=== PATIENT | male | born 1950 | race African-American/Black ===

== ENCOUNTER 2017-03-30 21:15 | Emergency (ER) | payer MEDICAID ==
[~2017-03-30] VITALS: Ht 172.7 cm; Wt 84.2 kg
[~2017-03-30 21:15] MED LIST: ASPI-496 PO; LISI-170 PO; LISI5TAB7 PO; METF500T4 PO; METH40TA3 PO; SIMV20TA3 PO
[2017-03-30 21:25] VITALS: BP 149/81
== END 2017-03-30 22:31 | disposition left against medical advice (07) ==
LOC: ED 22:25
DX: R07.9 Chest pain, unspecified (principal); Z53.21 Procedure and treatment not carried out due to patient leaving prior to being seen by health care provider
CPT/HCPCS: 93005

== ENCOUNTER 2017-05-04 10:53 | Emergency (ER) | payer MEDICAID ==
[~2017-05-04] VITALS: Ht 172.7 cm; Wt 82.9 kg
[2017-05-04 10:55] VITALS: BP 154/82
== END 2017-05-04 11:26 | disposition left against medical advice (07) ==
LOC: ED 11:00
DX: Z53.21 Procedure and treatment not carried out due to patient leaving prior to being seen by health care provider (principal)

== ENCOUNTER 2018-02-24 01:43 | Emergency (ER) | payer MEDICAID ==
[~2018-02-24] VITALS: Ht 172.7 cm; Wt 87.0 kg
[~2018-02-24 01:43] MED LIST changes: -METF500T4 PO; +METF500T5 PO
[2018-02-24 01:48] VITALS: BP 149/91
== END 2018-02-24 02:14 | disposition home or self-care (01) ==
LOC: ED 02:08
DX: L03.114 Cellulitis of left upper limb (principal); E78.5 Hyperlipidemia, unspecified; E11.9 Type 2 diabetes mellitus without complications; I10 Essential (primary) hypertension
CPT/HCPCS: 99283

== ENCOUNTER 2018-02-27 01:12 | Emergency (ER) | payer MEDICAID ==
[~2018-02-27] VITALS: Ht 172.7 cm; Wt 86.8 kg
[~2018-02-27 01:12] MED LIST changes: +METF500T17 PO; -METF500T5 PO
[2018-02-27 01:13] VITALS: BP 139/76
== END 2018-02-27 02:27 | disposition home or self-care (01) ==
LOC: ED 01:43
DX: T50.905A Adverse effect of unspecified drugs, medicaments and biological substances, initial encounter (principal); Z00.00 Encounter for general adult medical examination without abnormal findings; I10 Essential (primary) hypertension; E11.9 Type 2 diabetes mellitus without complications; E78.5 Hyperlipidemia, unspecified; Y92.9 Unspecified place or not applicable
CPT/HCPCS: 99281

== ENCOUNTER 2018-08-05 17:03 | Emergency (ER) | payer MEDICAID ==
[~2018-08-05] VITALS: Ht 172.7 cm; Wt 91.0 kg
[2018-08-05] MEDS ORDERED: ASPIRIN 81 MG TABLET CHEW PO ONE (17:30)
--- NOTE | 2018-08-05 17:41 | NUR ---
TO ROOM FROM LOBBY. NAD.
--- NOTE | 2018-08-05 17:54 | NUR ---
ATTEMPTED TO PLACED PT ON MONITOR AND ASK QUESTIONS. UPON ASKING PT QUESTIONS, PT BECAME VERBALLY AGRESSIVE TOWARDS MYSELF. STATES HE WANTS SOMEONE ELSE AFTER ASKING HIM QUESTIONS REGARDING HIS CHEST PAIN. ORTHOPEDIC TECHNICIAN AWARE. UNABLE TO PLACE PT ON SURFACE WATER TECHNICIAN AT THIS TIME.
[2018-08-05 17:56] LABS: BASOPHILS # (AUTO) 0.05 x10^3/uL (0-0.1); BASOPHILS % (AUTO) 1 % (0-1); EOSINOPHILS # (AUTO) 0.36 x10^3/uL (0-0.4); EOSINOPHILS % (AUTO) 5 % (1-7); LYMPHOCYTES # (AUTO) 1.94 x10^3/uL (1-3.4); LYMPHOCYTES % (AUTO) 25 % (22-44); MD NO; MEAN CORPUSCULAR HEMOGLOBIN 30.4 pg (27.5-34.5); MEAN CORPUSCULAR HGB CONC 33.8 g/dL (33.2-36.2); MEAN CORPUSCULAR VOLUME 89.9 fL (81-97); MEAN PLATELET VOLUME 8.7 fL (7.4-10.4); MONOCYTES # (AUTO) 0.54 x10^3/uL (0.2-0.8); MONOCYTES % (AUTO) 7 % (2-9); NEUTROPHILS % (AUTO) 63 % (42-75); PLATELET COUNT 201 x10^3/uL (130-400); RED BLOOD COUNT 4.91 x10^6/uL (4.38-5.82); RED CELL DISTRIBUTION WIDTH 15.4 % (9.4-14.8)
[2018-08-05 18:06] LABS: ALBUMIN 3.7 g/dL (3.4-5.0); ANION GAP 3 mmol/L (5-15); CALCIUM 8.6 mg/dL (8.5-10.1); CHLORIDE 108 mmol/L (98-107)
[2018-08-05 18:12] LABS: ALANINE AMINOTRANSFERASE 40 U/L (12-78); ALKALINE PHOSPHATASE 95 U/L (45-117); BILIRUBIN,TOTAL 0.4 mg/dL (0.2-1.0); CREATININE 1.45 mg/dL (0.7-1.3); TOTAL PROTEIN 7.6 g/dL (6.4-8.2); TROPONIN I < 0.015 ng/mL (0.000-0.045)
[2018-08-05] MEDS ORDERED: ASPIRIN 81 MG TABLET CHEW ONE (18:42)
[2018-08-05] MEDS ORDERED: METF500T27 PO (18:46)
--- NOTE | 2018-08-05 19:51 | NUR ---
PT DECLINING TO BE ADMITTED. SIGNED OUT AMA AND PROVIDED DISCHARGE PAPERS WITH ENCOURAGMENT TO FOLLOW UP FOR FURTHER CARDIAC WORKUP OR TO RETURN TO ER FOR SAME AT ANY TIME
[2018-08-05 19:53] VITALS: BP 125/65
== END 2018-08-05 20:05 | disposition left against medical advice (07) ==
LOC: ED 18:30
DX: R07.89 Other chest pain (principal); R06.02 Shortness of breath; R10.9 Unspecified abdominal pain; E11.9 Type 2 diabetes mellitus without complications; I10 Essential (primary) hypertension; F17.200 Nicotine dependence, unspecified, uncomplicated
CPT/HCPCS: 36415; 71046; 80053; 83880; 84484; 85025; 93005; 99284

== ENCOUNTER 2018-08-13 16:19 | Emergency (ER) | payer MEDICAID ==
[~2018-08-13] VITALS: Ht 172.7 cm; Wt 92.3 kg
[~2018-08-13 16:19] MED LIST changes: +METF500T27 PO
--- NOTE | 2018-08-13 16:22 | NUR ---
NO ANS WHEN CALLED FOR TRIAGE
--- NOTE | 2018-08-13 16:58 | NUR ---
CALLED FOR ROOM, NO ANSWER.
--- NOTE | 2018-08-13 17:09 | NUR ---
PT AMBULATORY TO ROOM FROM LOBBY.
[2018-08-13 17:17] LABS: ALBUMIN 3.9 g/dL (3.4-5.0); ANION GAP 3 mmol/L (5-15); CHLORIDE 109 mmol/L (98-107)
[2018-08-13 17:21] LABS: TROPONIN I < 0.015 ng/mL (0.000-0.045)
--- NOTE | 2018-08-13 17:25 | NUR ---
PT C/O INTERMITTENT CP AND SOB ON EXERTION FOR 4-5 MONTHS THAT RETURNED TODAY AFTER STARTING TO WALK ABOUT 2 HOURS AGO. PT ON MONITOR. PT DENIES ANY N/V OR DIAPHORESIS. CHART UP FOR . REPORT TO SCOTTIE David
--- NOTE | 2018-08-13 17:28 | NUR ---
PT REPORT FROM MARTIR PENALOZA. PT CARE TO BE ASSUMED.
[2018-08-13 17:29] LABS: BASOPHILS # (AUTO) 0.07 x10^3/uL (0-0.1); BASOPHILS % (AUTO) 1 % (0-1); EOSINOPHILS # (AUTO) 0.24 x10^3/uL (0-0.4); EOSINOPHILS % (AUTO) 3 % (1-7); LYMPHOCYTES # (AUTO) 1.58 x10^3/uL (1-3.4); LYMPHOCYTES % (AUTO) 22 % (22-44); MEAN CORPUSCULAR HEMOGLOBIN 30.4 pg (27.5-34.5); MEAN CORPUSCULAR HGB CONC 33.5 g/dL (33.2-36.2); MEAN CORPUSCULAR VOLUME 90.8 fL (81-97); MEAN PLATELET VOLUME 9.1 fL (7.4-10.4); MONOCYTES # (AUTO) 0.54 x10^3/uL (0.2-0.8); MONOCYTES % (AUTO) 7 % (2-9); NEUTROPHILS % (AUTO) 67 % (42-75); PLATELET COUNT 142 x10^3/uL (130-400); RED BLOOD COUNT 5.03 x10^6/uL (4.38-5.82); RED CELL DISTRIBUTION WIDTH 15.8 % (9.4-14.8)
[2018-08-13 17:30] LABS: MD SCAN
[2018-08-13 18:26] VITALS: BP 179/89
--- NOTE | 2018-08-13 18:33 | NUR ---
PT INSISTANT UPON LEAVING AMA. AMA FORM SIGNED. PT A&OX4, RESP EVEN & UNLABORED, SPEECH CLEAR, SKIN WNL. DENIES PAIN CURRENTLY. DENIES LIGHTHEADEDNESS/DIZZINESS W/ POSITION CHANGE.
== END 2018-08-13 18:36 | disposition left against medical advice (07) ==
LOC: ED 18:30
DX: R07.89 Other chest pain (principal); R42 Dizziness and giddiness; R06.02 Shortness of breath; E11.9 Type 2 diabetes mellitus without complications; F17.200 Nicotine dependence, unspecified, uncomplicated
CPT/HCPCS: 36415; 71045; 80048; 82040; 84484; 85025; 93005; 99284

== ENCOUNTER 2018-08-13 20:46 | Emergency (ER) | payer MEDICAID ==
[~2018-08-13] VITALS: Ht 172.7 cm; Wt 91.6 kg
== END 2018-08-13 22:12 | disposition other institution (70) ==
LOC: ED 22:06
DX: R06.02 Shortness of breath (principal); Z53.21 Procedure and treatment not carried out due to patient leaving prior to being seen by health care provider
CPT/HCPCS: 93005; 99283

== ENCOUNTER 2018-11-03 08:44 | Emergency (ER) | payer MEDICAID ==
[~2018-11-03] VITALS: Ht 170.2 cm; Wt 91.7 kg
[2018-11-03 08:46] VITALS: BP 182/87
[2018-11-03] MEDS ORDERED: METHOCARBAMOL 750 MG TABLET ONE (10:15)
[2018-11-03] MEDS ORDERED: HYDROcodone/APAP 5/325 TABLET ONE (10:15)
[2018-11-03] MEDS ORDERED: METHOCARBAMOL 750 MG TABLET PO ONE (10:30)
[2018-11-03] MEDS ORDERED: HYDROcodone/APAP 5/325 TABLET PO ONE (10:30)
== END 2018-11-03 11:20 | disposition home or self-care (01) ==
LOC: ED 11:11
DX: G89.29 Other chronic pain (principal); M51.36 Other intervertebral disc degeneration, lumbar region; M54.5 Low back pain; M25.552 Pain in left hip; F17.200 Nicotine dependence, unspecified, uncomplicated; I10 Essential (primary) hypertension; E11.9 Type 2 diabetes mellitus without complications
CPT/HCPCS: 72110; 99283

== ENCOUNTER 2018-11-26 02:31 | Emergency (ER) | payer MEDICARE, MEDICAID ==
[~2018-11-26] VITALS: Ht 172.7 cm; Wt 90.6 kg
[2018-11-26 02:34] VITALS: BP 127/79
--- NOTE | 2018-11-26 04:13 | NUR ---
PT LEFT AMA. AMA PAPERWORK SIGNED AND PLACED WITH PT CHART. PT WALKED THROUGH LOBBY DOOR WITH ASSSITANCE OF OTTO.
== END 2018-11-26 03:19 ==
LOC: ED 03:08
DX: R07.89 Other chest pain (principal); R68.2 Dry mouth, unspecified; H04.123 Dry eye syndrome of bilateral lacrimal glands; F17.200 Nicotine dependence, unspecified, uncomplicated; I10 Essential (primary) hypertension; E11.9 Type 2 diabetes mellitus without complications; E78.5 Hyperlipidemia, unspecified
CPT/HCPCS: 99281

== ENCOUNTER 2019-06-07 09:59 | Emergency (ER) | payer MEDICARE, MEDICAID ==
[~2019-06-07] VITALS: Ht 172.7 cm; Wt 91.4 kg
[~2019-06-07 09:59] MED LIST changes: +ARTHIRITIS MED; +BLOOD PRESSURE MED
--- NOTE | 2019-06-07 10:42 | NUR ---
PT TO ED FOR INTERMITTENT SOB X4-[address] RANDALL TO BS FOR ASSESSMENT. PT THEN TOLD DR. RANDALL IT HAS BEEN HAPPENING FOR MONTHS. PT DENIES ANY AGGRAVATING OR RELIEVING FACTORS AND STATES, "SOMETIMES IT HAPPENS WEHN I'M JUST SITTING." PT IS UNABLE TO STATE WHAT CHANGED TODAY THAT MADE HIM COME TO THE ED. PT IS ANGRY, ARGUMENTATIVE AND VERBALLY AGGRESSIVE TOWARD STAFF. PT STATED, "I'M ANSWERING ALL THE QUESTIONS THAT YOU ASK ME! WHAT ELSE DO YOU WANT? ARE YOU GOING TO DO SOMETHING FOR ME OR NOT? JUST DO YOUR JOB!" PT CONNECTED TO ALL MONITORS. VSS. ORDERS RECEIVED. EKG, CXR AND LAB DRAW COMPLETE. AWAITING RESULTS.
[2019-06-07 11:21] LABS: TROPONIN I < 0.015 ng/mL (0.000-0.045)
[2019-06-07 11:27] VITALS: BP 154/76
--- NOTE | 2019-06-07 11:27 | NUR ---
PT RESTING IN ROOM. VSS. NO NEEDS EXPRESSED. CALL LIGHT WITHIN REACH. ALL RESULTS BACK AT THIS TIME. CHART UP FOR RECHECK.
== END 2019-06-07 11:41 | disposition home or self-care (01) ==
LOC: ED 10:56
DX: R06.00 Dyspnea, unspecified (principal); I10 Essential (primary) hypertension; E78.5 Hyperlipidemia, unspecified; E11.9 Type 2 diabetes mellitus without complications; F17.200 Nicotine dependence, unspecified, uncomplicated; F12.10 Cannabis abuse, uncomplicated
CPT/HCPCS: 36415; 71045; 84484; 93005; 99284

== ENCOUNTER 2019-06-08 11:30 | Emergency (ER) | payer MEDICARE, MEDICAID ==
[~2019-06-08] VITALS: Ht 172.7 cm; Wt 90.6 kg
[2019-06-08] MEDS ORDERED: SODIUM CHLORIDE FLUSH 10ML SYR IVF ONE (12:00)
[2019-06-08 12:04] VITALS: BP 91/65
== END 2019-06-08 12:08 | disposition left against medical advice (07) ==
LOC: ED 11:57
DX: R55 Syncope and collapse (principal)
CPT/HCPCS: 82962; 93005; 99283; 99284

== ENCOUNTER 2019-08-23 19:07 | Emergency (ER) | payer MEDICARE, MEDICAID ==
[~2019-08-23] VITALS: Ht 172.7 cm; Wt 97.9 kg
[~2019-08-23 19:07] MED LIST changes: +SIMV20TA19 PO; -SIMV20TA3 PO
[2019-08-23] MEDS ORDERED: ASPIRIN 81 MG TABLET CHEW ONE (19:44)
--- NOTE | 2019-08-23 19:45 | NUR ---
MEDS REQUESTED FROM PHARMACY
[2019-08-23] MEDS ORDERED: ASPIRIN 81 MG TABLET CHEW PO ONE (20:00)
[2019-08-23] MEDS ORDERED: LISINOPRIL 10 MG TABLET PO ONE (20:00)
[2019-08-23] MEDS ORDERED: SODIUM CHLORIDE FLUSH 10ML SYR IVF ONE (20:00)
[2019-08-23 20:14] LABS: BASOPHILS # (AUTO) 0.04 x10^3/uL (0-0.1); BASOPHILS % (AUTO) 1 % (0-1); EOSINOPHILS # (AUTO) 0.18 x10^3/uL (0-0.4); EOSINOPHILS % (AUTO) 2 % (1-7); LYMPHOCYTES # (AUTO) 1.65 x10^3/uL (1-3.4); LYMPHOCYTES % (AUTO) 19 % (22-44); MD NO; MEAN CORPUSCULAR HEMOGLOBIN 29.4 pg (27.5-34.5); MEAN CORPUSCULAR HGB CONC 32.8 g/dL (33.2-36.2); MEAN CORPUSCULAR VOLUME 89.6 fL (81-97); MEAN PLATELET VOLUME 8.5 fL (7.4-10.4); MONOCYTES # (AUTO) 0.68 x10^3/uL (0.2-0.8); MONOCYTES % (AUTO) 8 % (2-9); NEUTROPHILS # (AUTO) 5.97 x10^3/uL (1.8-6.8); NEUTROPHILS % (AUTO) 70 % (42-75); PLATELET COUNT 194 x10^3/uL (130-400); RED BLOOD COUNT 4.98 x10^6/uL (4.38-5.82); RED CELL DISTRIBUTION WIDTH 15.1 % (9.4-14.8)
--- NOTE | 2019-08-23 20:21 | NUR ---
PT MEDICATED PER EMAR. 5 RIGHTS ADDRESSED. MONITORING EQUIPMENT APPLIED. PT REFUSING TO CHANGE INTO A GOWN AND DOES NOT WANT THE MAINTENANCE COORDINATOR ON. ADVISED OF RISKS NOT DOING THIS AND STILL REFUSES. PT ALSO REFUSING TO WEAR A FACE MASK ALTHOUGH C/O FEVER/CHILLS
[2019-08-23 20:23] LABS: ALBUMIN 3.8 g/dL (3.4-5.0); ANION GAP 6 mmol/L (5-15); CALCIUM 8.8 mg/dL (8.5-10.1); CHLORIDE 105 mmol/L (98-107)
[2019-08-23 20:25] VITALS: BP 178/88
[2019-08-23 20:28] LABS: ALANINE AMINOTRANSFERASE 73 U/L (12-78); ALKALINE PHOSPHATASE 121 U/L (45-117); BILIRUBIN,TOTAL 0.6 mg/dL (0.2-1.0); CREATININE 1.05 mg/dL (0.7-1.3); TOTAL PROTEIN 7.6 g/dL (6.4-8.2); TROPONIN I < 0.015 ng/mL (0.000-0.045)
--- NOTE | 2019-08-23 20:59 | NUR ---
Patient/Caregiver given discharge instructions and they have confirmed that they understand the instructions. Patient ambulatory with steady gait.
== END 2019-08-23 21:00 ==
LOC: ED 20:54
DX: J44.1 Chronic obstructive pulmonary disease with (acute) exacerbation (principal); R00.1 Bradycardia, unspecified; I10 Essential (primary) hypertension; E78.5 Hyperlipidemia, unspecified; E11.9 Type 2 diabetes mellitus without complications; F17.210 Nicotine dependence, cigarettes, uncomplicated
CPT/HCPCS: 36415; 71046; 80053; 83880; 84484; 85025; 93005; 99285; 99406

== ENCOUNTER 2019-11-09 14:28 | Emergency (ER) | payer MEDICARE, MEDICAID ==
[~2019-11-09] VITALS: Ht 172.7 cm; Wt 90.0 kg
[2019-11-09 14:34] VITALS: BP 165/93
--- NOTE | 2019-11-09 14:54 | NUR ---
THIS PT WAS AMBULATORY TO ROOM. PT SITTING IN BED, WATCHING TV, REFUSED TO CHANGED OUT OF CLOTHES IN TO GOWN. ERP TO BEDSIDE NOW. WILL CONTINUE TO MONITOR.
[2019-11-09] MEDS ORDERED: LISINOPRIL 20 MG TABLET PO ONE (15:00)
[2019-11-09] MEDS ORDERED: LISINOPRIL 20 MG TABLET ONE (15:04)
--- NOTE | 2019-11-09 15:10 | NUR ---
PT STATED TO ERP HE ONLY WANTED TO BE HERE TO GET HIS PERSCRIPTION, HE WOULD COME BACK IF SYMPTOMS RETURNED. PT DRESSED SELF IN REST OF BELONGINGS BEFORE RN COULD RETURN TO MEDICATE PT. PT MEDICATED TO AUG.
== END 2019-11-09 15:13 | disposition home or self-care (01) ==
LOC: ED 15:00
DX: R07.89 Other chest pain (principal); I10 Essential (primary) hypertension; R06.02 Shortness of breath; R94.31 Abnormal electrocardiogram [ECG] [EKG]
CPT/HCPCS: 93005; 99283

== ENCOUNTER 2020-01-26 14:47 | Emergency (ER) | payer MEDICARE, MEDICAID ==
[~2020-01-26] VITALS: Ht 172.7 cm; Wt 89.8 kg
[2020-01-26 15:52] VITALS: BP 154/86
--- NOTE | 2020-01-26 16:03 | NUR ---
THIS PT PRESENTS TO THE ER WITH A GENERALIZED COMPLAINT OF SOB THAT'S INTERMITTENT X1 WEEK. PT DENIES ANY ASSOCIATED SYMPTOMS, DENIES WORSENING WITH ACTIVITY. PT HAS HX OF THE SAME THAT HE'S "BEEN GIVEN MEDS FOR" BUT CANNOT REMEMBER WHAT MEDS. PT DOES NOT HAVE PAIN OR EDEMA. PT PRESENTS IN NO SIGNS OF ACUTE DISTRESS. HE IS A POOR HISTORIAN.
== END 2020-01-26 16:30 | disposition home or self-care (01) ==
LOC: ED 16:00
DX: R06.00 Dyspnea, unspecified (principal); R53.83 Other fatigue; I10 Essential (primary) hypertension; E11.9 Type 2 diabetes mellitus without complications; F17.210 Nicotine dependence, cigarettes, uncomplicated
CPT/HCPCS: 71045; 93005; 99283; 99406

== ENCOUNTER 2020-05-21 11:17 | Emergency (ER) | payer MEDICARE, MEDICAID ==
[~2020-05-21] VITALS: Ht 172.7 cm; Wt 95.5 kg
[2020-05-21 11:20] VITALS: BP 186/90
[2020-05-21] MEDS ORDERED: ASPIRIN 81 MG TABLET CHEW PO ONE (11:30)
[2020-05-21] MEDS ORDERED: SODIUM CHLORIDE FLUSH 10ML SYR IVF ONE (11:30)
== END 2020-05-21 14:28 | disposition left against medical advice (07) ==
LOC: ED 14:22
DX: R07.89 Other chest pain (principal); R06.00 Dyspnea, unspecified; I10 Essential (primary) hypertension
CPT/HCPCS: 71045; 93005; 99283

== ENCOUNTER 2020-12-13 19:35 | Inpatient (IN) | payer MEDICARE, MEDICAID ==
[~2020-12-13] VITALS: Ht 172.7 cm; Wt 89.6 kg
--- NOTE | 2020-12-13 20:50 | NUR ---
guide winder: pt has been verbally aggressing to multiple staff members in lobby as well as other patients. pt yelling in lobby. no difficulty breathing speaking or swallowing. +ambulatory and AHUJA without difficulty. security has been in contact with patient x4
--- NOTE | 2020-12-13 21:23 | NUR ---
trestle mechanic: Pt ambulatory to room from lobby at this time.
[2020-12-13] MEDS ORDERED: LORazepam 2 MG/ML, 1ML ONE ×3 (21:50→21:54)
[2020-12-13] MEDS ORDERED: SODIUM CHLORIDE 0.9% 1,000ML IVBOLUS ONE (22:00)
[2020-12-13] MEDS ORDERED: LORazepam 2 MG/ML, 1ML IVPush ONE (22:00)
--- NOTE | 2020-12-13 22:18 | NUR ---
IVF infusing, urine collected and sent. NSR no ectopy, RR is improving. Call gomez in reach.
[2020-12-13 22:20] LABS: BASOPHILS % (AUTO) 1 % (0-1); EOSINOPHILS % (AUTO) 0 % (1-7); LYMPHOCYTES % (AUTO) 7 % (22-44); MEAN CORPUSCULAR HGB CONC 34.1 g/dL (33.2-36.2); MEAN PLATELET VOLUME 8.6 fL (7.4-10.4); MONOCYTES % (AUTO) 7 % (2-9); NEUTROPHILS % (AUTO) 85 % (42-75); PLATELET COUNT 224 x10^3/uL (130-400); RED BLOOD COUNT 5.33 x10^6/uL (4.38-5.82); RED CELL DISTRIBUTION WIDTH 15.1 % (9.4-14.8)
--- NOTE | 2020-12-13 22:23 | NUR ---
Pt medicated 1mg ativan IVP, fluids infusing. RR now wnl, HR [address] elevation. Will continue to monitor.
[2020-12-13 22:30] LABS: ALBUMIN 4.3 g/dL (3.4-5.0); ANION GAP 17 mmol/L (5-15); CALCIUM 10.2 mg/dL (8.5-10.1); CHLORIDE 104 mmol/L (98-107); CREATININE 1.69 mg/dL (0.7-1.3); SALICYLATE LEVEL 4.1 mg/dL (2.8-20.0)
[2020-12-13 22:36] LABS: TROPONIN I 0.344 ng/mL (0.000-0.045)
[2020-12-13 22:42] LABS: AMPHETAMINE SCREEN, URINE Positive (Negative); BARBITURATE SCREEN, URINE Negative (Negative); BENZODIAZEPINE SCREEN, URINE Negative (Negative); CANNABINOID SCREEN, URINE Positive (Negative); COCAINE SCREEN, URINE Negative (Negative); METHADONE SCREEN, URINE Negative (Negative); OPIATE SCREEN, URINE Positive (Negative)
[2020-12-13] MEDS ORDERED: ASPIRIN 81 MG TABLET CHEW ONE (23:11)
--- NOTE | 2020-12-13 23:28 | NUR ---
Pt dc his very difficult to place IV, pt says he doesn't want to stay. Informed pt of dangers of signing out without proper cardiac work up he says he doesn't care. Informed Dr Khan who is speaking with pt now.
[2020-12-13] MEDS ORDERED: ASPIRIN 325 MG TABLET PO ONE (23:30)
[2020-12-13] MEDS ORDERED: HEPARIN 5,000 UNITS/ML, 1ML IV ONE (23:45)
[2020-12-13] MEDS ORDERED: HEPARIN 5,000 UNITS/ML, 1ML IV PRN (23:45)
--- NOTE | 2020-12-13 23:51 | NUR ---
Pt now going to stay, found aspirin unswallowed, educated pt on importance of taking. He took in front of me.
[2020-12-14] MEDS ORDERED: MORPHINE SULFATE 4 MG/ML, 1ML IVPush PRN
[2020-12-14] MEDS ORDERED: SODIUM CHLORIDE 0.9% 1,000 ML IV SCH
[2020-12-14] MEDS ORDERED: DOCUSATE 100 MG CAPSULE PO PRN
[2020-12-14] MEDS ORDERED: ENALAPRILAT 1.25 MG/ML, 2ML IVPush PRN
[2020-12-14] MEDS ORDERED: MELATONIN 5 MG TABLET PO PRN
[2020-12-14] MEDS ORDERED: ACETAMINOPHEN 325 MG TABLET PO PRN
[2020-12-14] MEDS ORDERED: NITROGLYCERIN 0.4 MG BOTTLE (25 TABS) SL PRN
--- NOTE | 2020-12-14 00:06 | NUR ---
Will start heparin bolus and infusion prior to sending pt upstairs. IV u/s being attempted now pt being very difficult with placement.
--- NOTE | 2020-12-14 00:23 | NUR ---
hand straightener: attempted to insert new IV on behalf of primary RN. pt uncooperative with IV placement. pt has repeatedly moved and is pulling all monitoring equipment off. pt stated that he was feeling nauseated. this RN gave him an emesis bag that he vomited into and then dumped out on the floor on the side of the gurney. pt continues to move while IV placement being attempted. pt swearing. hospitalist at bedside for eval. Dr. Khan notified of patient behavior. report to primary RN Laura
[2020-12-14] MEDS ORDERED: LORazepam 2 MG/ML, 1ML IM PRN (00:30)
--- NOTE | 2020-12-14 01:18 | NUR ---
Informed JANIYA Ramirez of inability of pt to cooperate when attempting IV access and inability to maintain patency of IV. Report to MARTIR Brown to discuss pt has no IV access. Pt vitals stable, cp free. NSR no ectopy.
--- NOTE | 2020-12-14 01:20 | NUR ---
Late entry: pt only received 1mg ativan. Witnessed with MARTIR orozco.
[2020-12-14 01:43] VITALS: BP 161/93
[2020-12-14] MEDS: LORazepam 2 MG/ML, 1ML IV PRN ×2 (03:55→16:55)
[2020-12-14 04:01] LABS: BASOPHILS % (AUTO) 0 % (0-1); EOSINOPHILS % (AUTO) 0 % (1-7); LYMPHOCYTES % (AUTO) 5 % (22-44); MEAN CORPUSCULAR HEMOGLOBIN 30.3 pg (27.5-34.5); MEAN CORPUSCULAR HGB CONC 33.1 g/dL (33.2-36.2); MEAN PLATELET VOLUME 8.1 fL (7.4-10.4); MONOCYTES % (AUTO) 3 % (2-9); NEUTROPHILS % (AUTO) 91 % (42-75); PLATELET COUNT 213 x10^3/uL (130-400); RED BLOOD COUNT 4.91 x10^6/uL (4.38-5.82); RED CELL DISTRIBUTION WIDTH 15.1 % (9.4-14.8)
[2020-12-14 04:10] LABS: CHOLESTEROL, TOTAL 148 mg/dL (140-239); TRIGLYCERIDES 99 mg/dL (50-200); VLDL CHOLESTEROL 20 mg/dL (0-25)
[2020-12-14 04:14] LABS: CHOL/HDL RATIO 1.9; HDL CHOL % 53 % (26-37); HDL CHOLESTEROL (DIRECT) 79 mg/dL (40-60); LDL CHOLESTEROL,CALCULATED 49 mg/dL (54-169); LDL/HDL RATIO 0.6 (0.5-3.0)
[2020-12-14] MEDS: HEPARIN 25,000 UNITS/250ML PMX 250 ML IV PRN (04:47)
[2020-12-14] MEDS: ASPIRIN 325 MG TABLET EC PO SCH (06:41)
[2020-12-14 07:10] VITALS: BP 173/85
[2020-12-14] MEDS ORDERED: POTASSIUM PHOSPHATE 44 MEQ in SODIUM CHLORIDE 0.9% 500 ML IV ONE (07:30)
[2020-12-14] MEDS ORDERED: MAGNESIUM SULFATE PMX 2GM/50ML 50 ML IV ONE (07:30)
[2020-12-14 13:25] VITALS: BP 167/87
[2020-12-14] MEDS: AMLODIPINE 5 MG TABLET PO SCH (13:55)
[2020-12-14] MEDS: ONDANSETRON 2MG/ML, 2ML IVPush PRN (15:03)
[2020-12-14 20:10] VITALS: BP 168/96
[2020-12-14] MEDS: ATORVASTATIN 40 MG TABLET PO SCH (20:17)
[2020-12-15 01:55] LABS: BASOPHILS % (AUTO) 1 % (0-1); EOSINOPHILS % (AUTO) 1 % (1-7); LYMPHOCYTES % (AUTO) 6 % (22-44); MEAN CORPUSCULAR HEMOGLOBIN 30.5 pg (27.5-34.5); MEAN CORPUSCULAR HGB CONC 33.9 g/dL (33.2-36.2); MEAN PLATELET VOLUME 8.8 fL (7.4-10.4); MONOCYTES % (AUTO) 4 % (2-9); NEUTROPHILS % (AUTO) 89 % (42-75); PLATELET COUNT 217 x10^3/uL (130-400); RED BLOOD COUNT 5.34 x10^6/uL (4.38-5.82); RED CELL DISTRIBUTION WIDTH 14.8 % (9.4-14.8)
[2020-12-15 02:07] LABS: ALANINE AMINOTRANSFERASE 47 U/L (12-78); ALBUMIN 3.5 g/dL (3.4-5.0); ANION GAP 11 mmol/L (5-15); CALCIUM 8.9 mg/dL (8.5-10.1); CHLORIDE 102 mmol/L (98-107); CREATININE 1.27 mg/dL (0.7-1.3)
[2020-12-15 02:12] LABS: ALKALINE PHOSPHATASE 100 U/L (45-117); BILIRUBIN,TOTAL 1.3 mg/dL (0.2-1.0); TOTAL PROTEIN 7.8 g/dL (6.4-8.2)
[2020-12-15 02:33] VITALS: BP 169/86
[2020-12-15] MEDS: ASPIRIN 325 MG TABLET EC PO SCH (05:23)
[2020-12-15 06:29] VITALS: BP 159/97
[2020-12-15] MEDS: HEPARIN 25,000 UNITS/250ML PMX 250 ML IV PRN (06:41)
[2020-12-15] MEDS ORDERED: MAGNESIUM SULFATE PMX 2GM/50ML 50 ML IV ONE (07:00)
[2020-12-15] MEDS: AMLODIPINE 5 MG TABLET PO SCH (08:49)
[2020-12-15] MEDS: LACTATED RINGERS 1,000 ML IV SCH ×2 (09:00→14:38)
[2020-12-15] MEDS ORDERED: LISINOPRIL 5 MG TABLET PO SCH (10:00)
[2020-12-15 10:33] VITALS: BP 164/90
[2020-12-15] MEDS: LORazepam 2 MG/ML, 1ML IV PRN (10:42)
[2020-12-15 14:00] VITALS: BP 157/92
[2020-12-15] MEDS ORDERED: AMLO-150 PO (14:35)
[2020-12-15] MEDS ORDERED: LISI40TA9 PO (14:35)
[2020-12-15] MEDS ORDERED: GABA300C PO (14:35)
[2020-12-15] MEDS ORDERED: HYDR25TA6 PO (14:35)
[2020-12-15 19:37] VITALS: BP 158/105
[2020-12-15] MEDS: ATORVASTATIN 40 MG TABLET PO SCH (20:04)
[2020-12-15] MEDS: ONDANSETRON 2MG/ML, 2ML IVPush PRN (20:04)
[2020-12-16 00:18] VITALS: BP 145/107
[2020-12-16] MEDS: ASPIRIN 325 MG TABLET EC PO SCH (05:32)
[2020-12-16 07:01] LABS: BASOPHILS % (AUTO) 0 % (0-1); EOSINOPHILS % (AUTO) 0 % (1-7); LYMPHOCYTES % (AUTO) 7 % (22-44); MEAN CORPUSCULAR HEMOGLOBIN 30.2 pg (27.5-34.5); MEAN CORPUSCULAR HGB CONC 33.5 g/dL (33.2-36.2); MEAN PLATELET VOLUME 8.6 fL (7.4-10.4); MONOCYTES % (AUTO) 7 % (2-9); NEUTROPHILS % (AUTO) 86 % (42-75); PLATELET COUNT 216 x10^3/uL (130-400); RED BLOOD COUNT 5.53 x10^6/uL (4.38-5.82); RED CELL DISTRIBUTION WIDTH 14.5 % (9.4-14.8)
[2020-12-16 07:10] VITALS: BP 155/93
[2020-12-16 07:14] LABS: ALANINE AMINOTRANSFERASE 50 U/L (12-78); ALBUMIN 3.3 g/dL (3.4-5.0); ANION GAP 10 mmol/L (5-15); CALCIUM 8.8 mg/dL (8.5-10.1); CHLORIDE 103 mmol/L (98-107)
[2020-12-16 07:16] LABS: ALKALINE PHOSPHATASE 89 U/L (45-117); BILIRUBIN,TOTAL 2.1 mg/dL (0.2-1.0); CREATININE 1.14 mg/dL (0.7-1.3); TOTAL PROTEIN 7.4 g/dL (6.4-8.2)
[2020-12-16] MEDS: AMLODIPINE 5 MG TABLET PO SCH (08:47)
[2020-12-16] MEDS: LISINOPRIL 40 MG TABLET PO SCH (08:47)
[2020-12-16] MEDS: LORazepam 2 MG/ML, 1ML IV PRN (08:47)
[2020-12-16] MEDS: ENOXAPARIN 40 MG/0.4 ML SQ SCH (09:43)
[2020-12-16] MEDS: POTASSIUM CHLORIDE 20 MEQ TAB.ER.PRT PO SCH ×2 (09:43→18:52)
[2020-12-16 13:01] VITALS: BP 131/86
[2020-12-16] MEDS: CARVEDILOL 3.125 MG TABLET PO SCH (18:52)
[2020-12-16 19:02] VITALS: BP 132/85
[2020-12-16 19:59] LABS: MICROSCOPIC INDICATED
[2020-12-16] MEDS: ATORVASTATIN 40 MG TABLET PO SCH (22:05)
[2020-12-17 01:37] VITALS: BP 132/88
[2020-12-17 05:17] VITALS: BP 130/87
[2020-12-17] MEDS: ASPIRIN 325 MG TABLET EC PO SCH (05:19)
[2020-12-17] MEDS: CARVEDILOL 3.125 MG TABLET PO SCH ×2 (05:19→18:11)
[2020-12-17 05:44] LABS: BASOPHILS % (AUTO) 1 % (0-1); EOSINOPHILS % (AUTO) 1 % (1-7); LYMPHOCYTES % (AUTO) 9 % (22-44); MEAN CORPUSCULAR HGB CONC 34.1 g/dL (33.2-36.2); MONOCYTES % (AUTO) 8 % (2-9); NEUTROPHILS % (AUTO) 83 % (42-75); PLATELET COUNT 252 x10^3/uL (130-400); RED BLOOD COUNT 5.56 x10^6/uL (4.38-5.82); RED CELL DISTRIBUTION WIDTH 14.8 % (9.4-14.8)
[2020-12-17 06:17] LABS: ALANINE AMINOTRANSFERASE 58 U/L (12-78); ANION GAP 8 mmol/L (5-15); CALCIUM 8.5 mg/dL (8.5-10.1); CHLORIDE 107 mmol/L (98-107)
[2020-12-17 06:20] LABS: ALKALINE PHOSPHATASE 82 U/L (45-117); BILIRUBIN,TOTAL 1.6 mg/dL (0.2-1.0); CREATININE 1.14 mg/dL (0.7-1.3); TOTAL PROTEIN 6.9 g/dL (6.4-8.2)
[2020-12-17 07:02] VITALS: BP 140/85
[2020-12-17] MEDS: LISINOPRIL 40 MG TABLET PO SCH (08:37)
[2020-12-17] MEDS: ENOXAPARIN 40 MG/0.4 ML SQ SCH (08:37)
[2020-12-17] MEDS: AMLODIPINE 5 MG TABLET PO SCH (08:37)
[2020-12-17 12:33] VITALS: BP 107/76
[2020-12-17] MEDS: CLOPIDOGREL 75 MG TABLET PO SCH (13:11)
[2020-12-17 14:51] LABS: BASOPHILS % (AUTO) 0 % (0-1); EOSINOPHILS % (AUTO) 0 % (1-7); LYMPHOCYTES % (AUTO) 10 % (22-44); MEAN CORPUSCULAR HEMOGLOBIN 30.5 pg (27.5-34.5); MEAN CORPUSCULAR HGB CONC 33.3 g/dL (33.2-36.2); MEAN PLATELET VOLUME 8.8 fL (7.4-10.4); MONOCYTES % (AUTO) 8 % (2-9); NEUTROPHILS % (AUTO) 82 % (42-75); PLATELET COUNT 226 x10^3/uL (130-400); RED BLOOD COUNT 5.43 x10^6/uL (4.38-5.82); RED CELL DISTRIBUTION WIDTH 14.6 % (9.4-14.8)
[2020-12-17 19:11] VITALS: BP 122/83
[2020-12-17] MEDS: ATORVASTATIN 40 MG TABLET PO SCH (21:48)
[2020-12-17] MEDS ORDERED: OXYcodone IR 5MG TABLET PO PRN ×2 (22:30)
[2020-12-18 01:13] VITALS: BP 133/80
[2020-12-18 05:16] LABS: ALANINE AMINOTRANSFERASE 58 U/L (12-78); ALBUMIN 3.2 g/dL (3.4-5.0); ANION GAP 7 mmol/L (5-15); CALCIUM 8.6 mg/dL (8.5-10.1); CHLORIDE 107 mmol/L (98-107)
[2020-12-18 05:19] LABS: ALKALINE PHOSPHATASE 81 U/L (45-117); BILIRUBIN,TOTAL 1.3 mg/dL (0.2-1.0); CREATININE 1.28 mg/dL (0.7-1.3); TOTAL PROTEIN 6.8 g/dL (6.4-8.2)
[2020-12-18 05:56] VITALS: BP 113/73
[2020-12-18] MEDS: CARVEDILOL 3.125 MG TABLET PO SCH (05:58)
[2020-12-18] MEDS: ASPIRIN 325 MG TABLET EC PO SCH (05:58)
[2020-12-18 06:16] LABS: BASOPHILS % (AUTO) 1 % (0-1); EOSINOPHILS % (AUTO) 0 % (1-7); LYMPHOCYTES % (AUTO) 14 % (22-44); MEAN CORPUSCULAR HEMOGLOBIN 30.6 pg (27.5-34.5); MEAN CORPUSCULAR HGB CONC 33.8 g/dL (33.2-36.2); MEAN PLATELET VOLUME 9.1 fL (7.4-10.4); MONOCYTES % (AUTO) 9 % (2-9); NEUTROPHILS % (AUTO) 76 % (42-75); PLATELET COUNT 212 x10^3/uL (130-400); RED BLOOD COUNT 5.34 x10^6/uL (4.38-5.82); RED CELL DISTRIBUTION WIDTH 14.9 % (9.4-14.8)
[2020-12-18 06:48] VITALS: BP 102/71
[2020-12-18] MEDS ORDERED: CARV3.1212 PO ×2 (07:55)
[2020-12-18] MEDS ORDERED: ATOR40TA78 PO (07:55)
[2020-12-18] MEDS ORDERED: CLOP75TA PO (07:55)
[2020-12-18] MEDS ORDERED: AMLO-150 PO (07:55)
[2020-12-18] MEDS: CLOPIDOGREL 75 MG TABLET PO SCH (08:25)
[2020-12-18] MEDS: AMLODIPINE 5 MG TABLET PO SCH (08:25)
[2020-12-18] MEDS: LISINOPRIL 40 MG TABLET PO SCH (08:26)
[2020-12-18] MEDS: ENOXAPARIN 40 MG/0.4 ML SQ SCH (08:26)
[2020-12-18 13:42] VITALS: BP 109/76
[2020-12-18] MEDS ORDERED: ASPI-1026 PO (17:25)
== END 2020-12-18 17:44 | disposition home or self-care (01) | DRG 917 ==
LOC: ED 20:55 → EDIP 12-14 00:35 → 5SO 12-14 01:26
PROVIDERS: ADMIT Internal Medicine; ATTEND Internal Medicine
DX: T43.621A Poisoning by amphetamines, accidental (unintentional), initial encounter (principal); I21.4 Non-ST elevation (NSTEMI) myocardial infarction; N17.0 Acute kidney failure with tubular necrosis; G92 Toxic encephalopathy; D72.829 Elevated white blood cell count, unspecified; E11.9 Type 2 diabetes mellitus without complications; E78.5 Hyperlipidemia, unspecified; F17.210 Nicotine dependence, cigarettes, uncomplicated; I10 Essential (primary) hypertension; J44.9 Chronic obstructive pulmonary disease, unspecified; Z79.02 Long term (current) use of antithrombotics/antiplatelets; E83.39 Other disorders of phosphorus metabolism; E83.42 Hypomagnesemia; F12.129 Cannabis abuse with intoxication, unspecified; F11.129 Opioid abuse with intoxication, unspecified; I25.10 Atherosclerotic heart disease of native coronary artery without angina pectoris; R31.9 Hematuria, unspecified; Z86.19 Personal history of other infectious and parasitic diseases
CPT/HCPCS: 36415; 70450; 71045; 71046; 76700; 80048; 80053; 80061; 80299; 80307; 80320; 80329; 81001; 82040; 82962; 83036; 83735; 84100; 84145; 84443; 84484; 85025; 85520; 87040; 87086; 93005; 93306; 96374; G0378; J1644; J1650; J2405; G0480; J2060; J3475; J7030; J7040; J7120

== ENCOUNTER 2020-12-19 21:22 | Emergency (ER) | payer MEDICARE, MEDICAID ==
[~2020-12-19] VITALS: Ht 172.7 cm; Wt 87.8 kg
[~2020-12-19 21:22] MED LIST changes: +AMLO-150 PO; +ASPI-1026 PO; +ATOR40TA78 PO; +CARV3.1212 PO; +CLOP75TA PO; +GABA300C PO; +HYDR25TA6 PO; +LISI40TA9 PO
[2020-12-19 22:57] LABS: BASOPHILS % (AUTO) 0 % (0-1); EOSINOPHILS % (AUTO) 1 % (1-7); LYMPHOCYTES % (AUTO) 19 % (22-44); MEAN CORPUSCULAR HEMOGLOBIN 30.4 pg (27.5-34.5); MEAN CORPUSCULAR HGB CONC 34.1 g/dL (33.2-36.2); MEAN PLATELET VOLUME 8.6 fL (7.4-10.4); MONOCYTES % (AUTO) 10 % (2-9); NEUTROPHILS % (AUTO) 71 % (42-75); PLATELET COUNT 242 x10^3/uL (130-400); RED BLOOD COUNT 5.13 x10^6/uL (4.38-5.82); RED CELL DISTRIBUTION WIDTH 14.5 % (9.4-14.8)
[2020-12-19 23:06] LABS: ALANINE AMINOTRANSFERASE 56 U/L (12-78); ALBUMIN 3.4 g/dL (3.4-5.0); ANION GAP 11 mmol/L (5-15); CALCIUM 8.7 mg/dL (8.5-10.1); CHLORIDE 110 mmol/L (98-107); CREATININE 1.51 mg/dL (0.7-1.3)
[2020-12-19 23:11] LABS: ALKALINE PHOSPHATASE 76 U/L (45-117); BILIRUBIN,TOTAL 1.6 mg/dL (0.2-1.0); TOTAL PROTEIN 7.2 g/dL (6.4-8.2); TROPONIN I 0.108 ng/mL (0.000-0.045)
--- NOTE | 2020-12-20 01:08 | NUR ---
RECEIVED REPORT SARKIS FORRESTER RN, TRANSFER OF CARE.
[2020-12-20 01:14] VITALS: BP 115/63
== END 2020-12-20 01:20 | disposition home or self-care (01) ==
LOC: ED 12-20 00:30
DX: I12.9 Hypertensive chronic kidney disease with stage 1 through stage 4 chronic kidney disease, or unspecified chronic kidney disease (principal); N18.2 Chronic kidney disease, stage 2 (mild); R07.89 Other chest pain; F15.129 Other stimulant abuse with intoxication, unspecified; I42.9 Cardiomyopathy, unspecified; R77.8 Other specified abnormalities of plasma proteins; R00.2 Palpitations; E11.22 Type 2 diabetes mellitus with diabetic chronic kidney disease; E78.5 Hyperlipidemia, unspecified; J44.9 Chronic obstructive pulmonary disease, unspecified
CPT/HCPCS: 36415; 71045; 80053; 83880; 84484; 85025; 93005; 99285

== ENCOUNTER 2020-12-25 23:28 | Emergency (ER) | payer MEDICARE, MEDICAID ==
[~2020-12-25] VITALS: Ht 172.7 cm; Wt 90.0 kg
--- NOTE | 2020-12-25 23:45 | NUR ---
INITIAL PT CONTACT. PT PRESENTS TO ED C/O MID STERNAL CHEST PAIN X45 MINUTES. NOW RESOLVED. HX OF SAME. PT SITTING UPRIGHT ON RAJEEV SMITH, VSS. PT PLACED ON CONTINUOUS MONITORING, EKG COMPLETE UPON ARRIVAL. PT DENIES ANY NEEDS AT THIS TIME. CALL LIGHT AND PERSONAL BELONGINGS WITHIN REACH, ERP AT BEDSIDE.
[2020-12-25] MEDS ORDERED: ASPIRIN 81 MG TABLET CHEW ONE (23:54)
[2020-12-26] MEDS ORDERED: ASPIRIN 81 MG TABLET CHEW PO ONE
[2020-12-26 00:25] LABS: BASOPHILS % (AUTO) 1 % (0-1); EOSINOPHILS % (AUTO) 2 % (1-7); LYMPHOCYTES % (AUTO) 25 % (22-44); MEAN CORPUSCULAR HEMOGLOBIN 30.8 pg (27.5-34.5); MEAN CORPUSCULAR HGB CONC 33.8 g/dL (33.2-36.2); MEAN PLATELET VOLUME 8.3 fL (7.4-10.4); MONOCYTES % (AUTO) 9 % (2-9); NEUTROPHILS % (AUTO) 63 % (42-75); PLATELET COUNT 234 x10^3/uL (130-400); RED BLOOD COUNT 4.48 x10^6/uL (4.38-5.82); RED CELL DISTRIBUTION WIDTH 14.7 % (9.4-14.8)
[2020-12-26 00:40] LABS: ALBUMIN 3.3 g/dL (3.4-5.0); ANION GAP 8 mmol/L (5-15); CALCIUM 8.9 mg/dL (8.5-10.1); CHLORIDE 115 mmol/L (98-107); CREATININE 1.64 mg/dL (0.7-1.3)
[2020-12-26 00:43] LABS: TROPONIN I 0.024 ng/mL (0.000-0.045)
--- NOTE | 2020-12-26 01:52 | NUR ---
Patient given discharge instructions and they have confirmed that they understand the instructions. Patient ambulatory with steady gait. NAD, all questions answered appropriately, denies additional needs at this time. No personal belongings left in room after discharge.
[2020-12-26 01:53] VITALS: BP 126/76
== END 2020-12-26 02:00 | disposition home or self-care (01) ==
LOC: ED 23:35
DX: R07.89 Other chest pain (principal); R00.2 Palpitations; F12.10 Cannabis abuse, uncomplicated; I10 Essential (primary) hypertension; E11.9 Type 2 diabetes mellitus without complications; J44.9 Chronic obstructive pulmonary disease, unspecified; E78.5 Hyperlipidemia, unspecified; R94.31 Abnormal electrocardiogram [ECG] [EKG]; F17.210 Nicotine dependence, cigarettes, uncomplicated
CPT/HCPCS: 36415; 71045; 80048; 82040; 84484; 85025; 93005; 99406

== ENCOUNTER 2021-01-11 06:52 | Emergency (ER) | payer MEDICARE, MEDICAID ==
[~2021-01-11] VITALS: Ht 172.7 cm; Wt 93.1 kg
[2021-01-11] MEDS ORDERED: ACETAMINOPHEN 500 MG TABLET ONE (07:26)
[2021-01-11] MEDS ORDERED: ACETAMINOPHEN 500 MG TABLET PO ONE (07:30)
--- NOTE | 2021-01-11 07:37 | NUR ---
pt presents to ed with c/o chills, body aches, and pain in R arm starting approx 1 hour ago. pt a&o, resps even and unlabored, vss, all monitors attached, nsr, nadn.
--- NOTE | 2021-01-11 08:20 | NUR ---
pt resting in bed, resps even and unlabored, vss, all monitors attached, nsr, nadn. call light in reach, lab at bedside.
[2021-01-11 08:31] LABS: BASOPHILS % (AUTO) 1 % (0-1); EOSINOPHILS % (AUTO) 4 % (1-7); LYMPHOCYTES % (AUTO) 28 % (22-44); MEAN CORPUSCULAR HEMOGLOBIN 30.7 pg (27.5-34.5); MEAN CORPUSCULAR HGB CONC 33.3 g/dL (33.2-36.2); MEAN PLATELET VOLUME 8.3 fL (7.4-10.4); MONOCYTES % (AUTO) 10 % (2-9); NEUTROPHILS % (AUTO) 58 % (42-75); PLATELET COUNT 145 x10^3/uL (130-400); RED BLOOD COUNT 4.09 x10^6/uL (4.38-5.82); RED CELL DISTRIBUTION WIDTH 15.4 % (9.4-14.8)
[2021-01-11 08:41] LABS: ANION GAP 7 mmol/L (5-15); CALCIUM 8.7 mg/dL (8.5-10.1); CHLORIDE 111 mmol/L (98-107); CREATININE 1.32 mg/dL (0.7-1.3)
--- NOTE | 2021-01-11 09:27 | NUR ---
PT LSEEPING IN BED, VSS, RESPS EVEN AND UNLABORED, ALL MONITORS ATTACHED, NSR, NADN. AWAITING LAB RESULTS AND DISPO.
[2021-01-11 10:07] VITALS: BP 127/73
--- NOTE | 2021-01-11 10:07 | NUR ---
PT AMBULATORY TO RESTROOM WITH STEADY GAIT, VSS, NADN.
--- NOTE | 2021-01-11 10:32 | NUR ---
DISCHARGE INSTRUCTIONS REVIEWED, PT VERBALIZED UNDERSTANDING, VSS NADN. AMBULATORY TO DISCHARGE WITH STEADY GAIT, NO COMPLAINTS AT TIME OF DISCHARGE.
== END 2021-01-11 10:34 | disposition home or self-care (01) ==
LOC: ED 09:01
DX: B34.9 Viral infection, unspecified (principal); Z20.822 Contact with and (suspected) exposure to COVID-19; I12.9 Hypertensive chronic kidney disease with stage 1 through stage 4 chronic kidney disease, or unspecified chronic kidney disease; N18.2 Chronic kidney disease, stage 2 (mild); F17.210 Nicotine dependence, cigarettes, uncomplicated; R07.9 Chest pain, unspecified; R94.31 Abnormal electrocardiogram [ECG] [EKG]; E11.22 Type 2 diabetes mellitus with diabetic chronic kidney disease; J44.9 Chronic obstructive pulmonary disease, unspecified; E78.5 Hyperlipidemia, unspecified
CPT/HCPCS: 36415; 71045; 80048; 82040; 85025; 93005; 99285; 99406; U0003; U0005

== ENCOUNTER 2021-03-09 16:44 | Emergency (ER) | payer MEDICARE, MEDICAID ==
[~2021-03-09] VITALS: Ht 172.7 cm; Wt 91.4 kg
[2021-03-09 17:32] LABS: BASOPHILS % (AUTO) 1 % (0-1); EOSINOPHILS % (AUTO) 4 % (1-7); LYMPHOCYTES % (AUTO) 22 % (22-44); MEAN CORPUSCULAR HGB CONC 33.1 g/dL (33.2-36.2); MEAN PLATELET VOLUME 8.7 fL (7.4-10.4); MONOCYTES % (AUTO) 8 % (2-9); NEUTROPHILS % (AUTO) 66 % (42-75); PLATELET COUNT 169 x10^3/uL (130-400); RED BLOOD COUNT 4.78 x10^6/uL (4.38-5.82); RED CELL DISTRIBUTION WIDTH 15.1 % (9.4-14.8)
[2021-03-09 17:45] LABS: ALANINE AMINOTRANSFERASE 45 U/L (12-78); ALBUMIN 3.3 g/dL (3.4-5.0); ANION GAP 9 mmol/L (5-15); CALCIUM 8.5 mg/dL (8.5-10.1); CHLORIDE 105 mmol/L (98-107); CREATININE 1.27 mg/dL (0.7-1.3)
[2021-03-09 17:50] LABS: ALKALINE PHOSPHATASE 112 U/L (45-117); BILIRUBIN,TOTAL 0.5 mg/dL (0.2-1.0); TOTAL PROTEIN 7.1 g/dL (6.4-8.2); TROPONIN I < 0.015 ng/mL (0.000-0.045)
--- NOTE | 2021-03-09 18:37 | NUR ---
Pt to room from lobby.
--- NOTE | 2021-03-09 18:54 | NUR ---
FIRST CONTACT WITH PT. PT. UP FOR D/C AFTER DR. LANG WAS IN TO [facility].
[2021-03-09 19:09] VITALS: BP 125/77
== END 2021-03-09 19:11 | disposition home or self-care (01) ==
LOC: ED 17:00
DX: R07.2 Precordial pain (principal); R06.02 Shortness of breath; R94.31 Abnormal electrocardiogram [ECG] [EKG]; F17.210 Nicotine dependence, cigarettes, uncomplicated; J44.9 Chronic obstructive pulmonary disease, unspecified; E11.9 Type 2 diabetes mellitus without complications; I10 Essential (primary) hypertension; E78.5 Hyperlipidemia, unspecified
CPT/HCPCS: 36415; 71045; 80053; 83690; 84484; 85025; 93005; 99285

== ENCOUNTER 2021-03-14 10:32 | Outpatient (CLI) | payer MEDICARE, MEDICAID ==
[2021-03-14 10:59] LABS: BASOPHILS % (AUTO) 1 % (0-1); EOSINOPHILS % (AUTO) 3 % (1-7); LYMPHOCYTES % (AUTO) 26 % (22-44); MEAN CORPUSCULAR HEMOGLOBIN 30.4 pg (27.5-34.5); MEAN CORPUSCULAR HGB CONC 33.6 g/dL (33.2-36.2); MEAN PLATELET VOLUME 8.5 fL (7.4-10.4); MONOCYTES % (AUTO) 9 % (2-9); NEUTROPHILS % (AUTO) 61 % (42-75); PLATELET COUNT 185 x10^3/uL (130-400); RED BLOOD COUNT 4.88 x10^6/uL (4.38-5.82); RED CELL DISTRIBUTION WIDTH 14.8 % (9.4-14.8)
[2021-03-14 11:10] LABS: ALBUMIN 3.3 g/dL (3.4-5.0); ANION GAP 8 mmol/L (5-15); CALCIUM 8.6 mg/dL (8.5-10.1); CHLORIDE 107 mmol/L (98-107)
[2021-03-14 11:35] LABS: ALANINE AMINOTRANSFERASE 48 U/L (12-78); ALKALINE PHOSPHATASE 103 U/L (45-117); CHOL/HDL RATIO 1.6; CHOLESTEROL, TOTAL 127 mg/dL (140-239); CREATININE 1.09 mg/dL (0.7-1.3); FOLATE LEVEL 18.9 ng/mL (3.1-17.5); FREE T4 (FREE THYROXINE) 1.15 ng/dL (0.76-1.46); HDL CHOL % 63 % (26-37); HDL CHOLESTEROL (DIRECT) 80 mg/dL (40-60); LDL CHOLESTEROL,CALCULATED 30 mg/dL (54-169); LDL/HDL RATIO 0.4 (0.5-3.0); TRIGLYCERIDES 83 mg/dL (50-200); VLDL CHOLESTEROL 17 mg/dL (0-25)
== END 2021-03-14 23:59 | disposition home or self-care (01) ==
LOC: LAB 10:32
PROVIDERS: ATTEND Internal Medicine
DX: E11.9 Type 2 diabetes mellitus without complications (principal); E78.5 Hyperlipidemia, unspecified; I10 Essential (primary) hypertension; R79.89 Other specified abnormal findings of blood chemistry; R94.5 Abnormal results of liver function studies
CPT/HCPCS: 36415; 80053; 80061; 82306; 82607; 82746; 83036; 84439; 84443; 85025

== ENCOUNTER 2021-03-22 05:10 | Emergency (ER) | payer MEDICARE, MEDICAID ==
[~2021-03-22] VITALS: Ht 172.7 cm; Wt 90.6 kg
[2021-03-22 06:07] VITALS: BP 124/71
== END 2021-03-22 06:38 | disposition home or self-care (01) ==
LOC: ED 05:46
DX: R07.89 Other chest pain (principal); F11.10 Opioid abuse, uncomplicated; R00.1 Bradycardia, unspecified